=== PATIENT | male | born 1975 | race Caucasian/White ===

== ENCOUNTER 2017-09-06 08:57 | Emergency (ER) | payer OTHER ==
[2017-09-06 09:07] VITALS: BP 132/96; PULSE 76; RESP 16; TEMP 98.1; O2SAT 98
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
== END 2017-09-06 10:05 | disposition home or self-care (01) ==
DX: S29.9XXA Unspecified injury of thorax, initial encounter (principal); V18.2XXA Unspecified pedal cyclist injured in noncollision transport accident in nontraffic accident, initial encounter